=== PATIENT | female | born 1960 | race Caucasian/White ===

== ENCOUNTER → 2018-04-27 | Outpatient (CLI) | payer OTHER ==
[~2018-04-27] MED LIST: ACYC-114 PO; ALBU8.5H8 INH; ASCO100019 PO; DIPH50CA62 PO; ESTR1TAB PO; GLUC-104 PO; JOINT SUPPLEMENT PO; MELA1TAB22 PO; MOME13HF3 INH; MULT-224 PO; OMEG1CAP23 PO; UBID100C24 PO; VITA400C42 PO
== END | disposition home or self-care (01) ==
LOC: RAD 15:03
PROVIDERS: ATTEND Internal Medicine
DX: J47.9 Bronchiectasis, uncomplicated (principal); J18.9 Pneumonia, unspecified organism
CPT/HCPCS: 71250